=== PATIENT | male | born 1970 | race Caucasian/White ===

== ENCOUNTER 2018-06-13 19:44 | Inpatient (IN) | payer OTHER ==
[2018-06-13] MEDS ORDERED: LIDOCAINE 4%/MENTHOL 1% PATCH TD ONE (20:50)
[2018-06-13] MEDS ORDERED: HYDROmorphONE/DILAUDID 2 MG/ML INJ IVP ONE (21:16)
[2018-06-13] MEDS ORDERED: NS 1,000 ML IV ONE (21:16)
[2018-06-13] MEDS ORDERED: KETOROLAC 30 MG/1 ML SDV IVP ONE (21:18)
--- NOTE | 2018-06-13 22:37 | EDPHY ---
H & P Time Seen by Provider: 06/13/18 20:21 HPI/ROS: HPI Back pain. 47-year-old male, history of multiple back surgeries with extensive hardware placed through the lower thoracic and lumbar sacral spine. [place] He states that he kneeled down on 1 knee slightly awkwardly about an hour prior to arrival. [place] and felt a pop like sensation. Then sudden-onset mid lower back pain. Denies any bowel or bladder incontinence. No loss of sensation or weakness in his lower extremities. He is narcotic pain medication dependent. Please see his medication list for further details. ROS: Constitutional: No fever, no chills. No weakness. Eyes: No discharge. No changes in vision. ENT: No sore throat. No nasal congestion or rhinorrhea. Respiratory: No cough. No shortness of breath. Cardiac: No chest pain, no palpitations. Gastrointestinal: No abdominal pain, no vomiting, no diarrhea. Genitourinary: No hematuria. No dysuria or increased frequency with urination. Musculoskeletal: As above. No neck pain. No myalgias or arthralgias. Skin: No rashes. Neurological: No headache. No focal weakness or altered sensation. Past medical history: History of back surgeries x9, appendectomy, cholecystectomy. Most of his back surgeries were performed down at [place]. Social history: Currently here by himself. Nonsmoker. Denies alcohol. Physical Exam: General Appearance: Alert, he appears very uncomfortable.. This patient is responding to questions appropriately and in full sentences. This patient appears well-hydrated and well-nourished. Eyes: Pupils equal and round no pallor or injection. No lid edema, erythema or injection. Back exam: Significant for midline pain at L4-L5. No bony deformity or step- off noted on palpation. No soft tissue erythema, warmth, edema or ecchymosis noted. Any movement of his lower extremities induces pain. He is neurologically intact in all myotomes in dermatomes of the bilateral lower extremities. Respiratory: There are no retractions, lungs are clear to auscultation with good air movement bilaterally. Cardiovascular: Regular rate and rhythm. No murmur. Gastrointestinal: Abdomen is soft and nontender, no masses, bowel sounds normal. No focal tenderness at McBurney's point. No Tobin sign. Neurological: Motor sensory function is grossly intact. Cranial nerves are normal. Skin: Warm and dry, no rashes. Musculoskeletal: Neck is supple and nontender. Extremities are symmetrical. Psychiatric: No agitation. No depression. Database: EKG: Imaging: LS spine x-ray series: Extensive postsurgical changes upper lumbar spine. The spine does maintain its usual alignment. No evidence of acute fracture, subluxation or dislocation. Right sacroiliac screw appears fractured. Likely chronic. The right Feliz tawanda between T12 and L1 appears disjointed. Please see radiologist's report for further details. Procedures: Vital signs reviewed and are normal. IV was placed. Patient is in significant pain. He was initially given 1 mg of IV hydromorphone. He does not have any contraindications to NSAIDs. No history of renal dysfunction or gastric ulcers. He was also given 30 mg of IV Toradol. 10:35 p.m., patient re-evaluated laying still he appears comfortable and his pain is controlled. Repeat neurologic Assessment is nonfocal. However, any movement exacerbates his pain significantly. He will not be able to get himself out of the gurney and ambulate. 10:45 p.m., spoke with the on-call hospitalist Dr. Garcia. regarding this patient. He will see the patient in the emergency department. He accepts this patient for admission for pain control. The patient's remaining emergency department course under my care has been uneventful. He was admitted in stable condition to the hospitalist service. Differential Diagnosis: The differential diagnosis on this patient includes but is not limited to acute on chronic lower back, history of multiple LS spine surgeries with hardware placed. Acute fracture, subluxation unlikely. This represents a partial list of diagnoses considered. These considerations are based on history, physical exam, past history, reassessment and diagnostic testing. Smoking Status: Former smoker Constitutional: Initial Vital Signs O2 Sat (%) 95 06/13/18 20:00 O2 Delivery Mode Nasal Cannula O2 (L/minute) 1 Allergies/Adverse Reactions: No Known Allergies Allergy (Unverified 06/13/18 19:56) Home Medications: Medication Instructions Recorded Cyclobenzaprine [Cyclobenzaprine 06/13/18 HCl] Levomilnacipran HCl [Fetzima] 06/13/18 Morphine Sulfate [Morphine Sulfate 06/13/18 ER] Tramadol HCl 06/13/18 oxyCODONE IR [Oxycodone Ir (*)] 06/13/18 Medical Decision Making - Diagnostics Imaging Results: Imaging Impressions Lumbar Spine X-Ray 06/13/18 21:16 Impression: Extensive postsurgical changes of the lumbar spine. The spine maintains customary alignment. The right sacroiliac screw appears fractured, possibly chronic. In addition, the right Feliz tawanda between T12 and L1 is disjointed, which may be related to patient's staged surgeries. Correlation with any outside imaging suggested. - Data Points Laboratory Results: Laboratory Results 06/13/18 19:44 06/13/18 19:44 06/13/18 06/13/18 19:44 19:44 WBC 8.90 10^3/uL 10^3/uL (3.80-9.50) RBC 4.16 10^6/uL L 10^6/uL (4.40-6.38) Hgb 12.1 g/dL L g/dL (13.7-17.5) Hct 37.8 % L % (40.0-51.0) MCV 90.9 fL fL (81.5-99.8) MCH 29.1 pg pg (27.9-34.1) MCHC 32.0 g/dL L g/dL (32.4-36.7) RDW 13.9 % % (11.5-15.2) Plt Count 403 10^3/uL H 10^3/uL (150-400) MPV 10.3 fL fL (8.7-11.7) Neut % (Auto) 63.5 % % (39.3-74.2) Lymph % (Auto) 23.6 % % (15.0-45.0) [place] % (Auto) 8.1 % % (4.5-13.0) Eos % (Auto) 3.9 % % (0.6-7.6) Baso % (Auto) 0.7 % % (0.3-1.7) Nucleat RBC Rel Count 0.0 % % (0.0-0.2) Absolute Neuts (auto) 5.65 10^3/uL 10^3/uL (1.70-6.50) Absolute Lymphs (auto) 2.10 10^3/uL 10^3/uL (1.00-3.00) Absolute Monos (auto) 0.72 10^3/uL 10^3/uL (0.30-0.80) Absolute Eos (auto) 0.35 10^3/uL 10^3/uL (0.03-0.40) Absolute Basos (auto) 0.06 10^3/uL 10^3/uL (0.02-0.10) Absolute Nucleated RBC 0.00 10^3/uL 10^3/uL (0-0.01) Immature Gran % 0.2 % % (0.0-1.1) Immature Gran # 0.02 10^3/uL 10^3/uL (0.00-0.10) Sodium 140 mEq/L mEq/L (135-145) Potassium 4.6 mEq/L mEq/L (3.3-5.0) Chloride 102 mEq/L mEq/L (97-110) Carbon Dioxide 28 mEq/l mEq/l (22-31) Anion Gap 10 mEq/L mEq/L (8-16) BUN 15 mg/dL mg/dL (7-23) Creatinine 0.8 mg/dL mg/dL (0.7-1.3) Estimated GFR > 60 Glucose 93 mg/dL mg/dL (70-100) Calcium 9.1 mg/dL mg/dL (8.5-10.4) Medications Given: Discontinued Medications Hydromorphone HCl (Dilaudid) 1 mg IVP EDNOW ONE Stop: 06/13/18 21:17 Last Admin: 06/13/18 21:25 Dose: 1 mg Sodium Chloride (Ns) 1,000 mls @ 0 mls/hr IV ONCE ONE; Wide Open PRN Reason: Protocol Stop: 06/13/18 21:17 Last Admin: 06/13/18 21:27 Dose: 1,000 mls Ketorolac Tromethamine (Toradol) 30 mg IVP EDNOW ONE Stop: 06/13/18 21:19 Last Admin: 06/13/18 21:24 Dose: 30 mg Miscellaneous Medication (Icy Hot Lidocaine/Menthol 4%/1% Patch) 1 patch TD EDNOW ONE Stop: 06/13/18 20:51 Last Admin: 06/13/18 21:27 Dose: 1 patch Departure - Departure Disposition: [facility] Acute Clinical Impression: Back pain due to injury, History of back surgery
[2018-06-13 22:45] LABS: PLATELET COUNT 403 10^3/uL (150-400)
[2018-06-13] MEDS ORDERED: ONDANSETRON DISINTEGRATING 4 MG TAB PO PRN (22:46)
[2018-06-13] MEDS ORDERED: ONDANSETRON 4 MG/2 ML VIAL IVP PRN (22:46)
[2018-06-13] MEDS ORDERED: morphINE SR 15 MG TAB PO ONE (22:55)
--- NOTE | 2018-06-14 00:15 | PDGENHP ---
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 Immediately after he began to have severe back pain. He describes this as 10/10, stabbing, central pain at the level of his waist. He denies radiculopathy, leg weakness, or loss of tuyet/bladder control. At the time of my evaluation he is fairly comfortable while sitting still but has severe pain without any movement. XR in the ED revealed R sacroiliac screw that appears fractured, although this may be chronic according to the patient. There also appears to be a disjointed tawanda of unclear significance. Patient reports using Morphine SR 15 mg PRN for pain only. When he feels well he does not take any narcotics at all. He trialed Morphine SR 15 mg x1 and oxycodone 5 mg x1 prior to presentation with minimal relief. Case discussed with Dr. Watson, pervious records reviewed. History Information - Allergies/Home Medication List Allergies/Adverse Reactions: No Known Allergies Allergy (Unverified 06/13/18 19:56) Home Medications: Cyclobenzaprine [Cyclobenzaprine HCl] 06/13/18 [Last Taken Unknown] Levomilnacipran HCl [Fetzima] 06/13/18 [Last Taken Unknown] Morphine Sulfate [Morphine Sulfate ER] 06/13/18 [Last Taken Unknown] Tramadol HCl 06/13/18 [Last Taken Unknown] oxyCODONE IR [Oxycodone Ir (*)] 06/13/18 [Last Taken Unknown] I have personally reviewed and updated: family history, medical history - Past Medical History arthritis - Surgical History Reports: spinal surgery (x9) - Family History Additional family history: Arthritis - Social History Smoking Status: Former smoker Review of Systems Review of Systems: ROS: 10pt was reviewed & negative except for what was stated in HPI & below Physical Exam Physical Exam: Temp Pulse Resp BP Pulse Ox 36.9 C 85 18 117/73 95 06/13/18 20:01 06/13/18 23:24 06/13/18 23:24 06/13/18 23:24 06/13/18 23:24 Constitutional: appears nourished, uncomfortable Eyes: PERRL, EOMI Ears, Nose, Mouth, Throat: moist mucous membranes, no oral mucosal ulcers Cardiovascular: regular rate and rhythym, no murmur, rub, or gallop Respiratory: no respiratory distress, clear to auscultation Gastrointestinal: normoactive bowel sounds, soft, non-tender abdomen Skin: warm, normal color Musculoskeletal: full muscle strength, no joint effusions Neurologic: AAOx3, sensation intact bilaterally, CN II-XII Intact, No weakness Psychiatric: interacting appropriately, not anxious Lab Data & Imaging Review 06/13/18 19:44 06/13/18 19:44 WBC 8.90 10^3/uL (3.80-9.50) 06/13/18 19:44 RBC 4.16 10^6/uL (4.40-6.38) L 06/13/18 19:44 Hgb 12.1 g/dL (13.7-17.5) L 06/13/18 19:44 Hct 37.8 % (40.0-51.0) L 06/13/18 19:44 MCV 90.9 fL (81.5-99.8) 06/13/18 19:44 MCH 29.1 pg (27.9-34.1) 06/13/18 19:44 MCHC 32.0 g/dL (32.4-36.7) L 06/13/18 19:44 RDW 13.9 % (11.5-15.2) 06/13/18 19:44 Plt Count 403 10^3/uL (150-400) H 06/13/18 19:44 MPV 10.3 fL (8.7-11.7) 06/13/18 19:44 Neut % (Auto) 63.5 % (39.3-74.2) 06/13/18 19:44 Lymph % (Auto) 23.6 % (15.0-45.0) 06/13/18 19:44 [place] % (Auto) 8.1 % (4.5-13.0) 06/13/18 19:44 Eos % (Auto) 3.9 % (0.6-7.6) 06/13/18 19:44 Baso % (Auto) 0.7 % (0.3-1.7) 06/13/18 19:44 Nucleat RBC Rel Count 0.0 % (0.0-0.2) 06/13/18 19:44 Absolute Neuts (auto) 5.65 10^3/uL (1.70-6.50) 06/13/18 19:44 Absolute Lymphs (auto) 2.10 10^3/uL (1.00-3.00) 06/13/18 19:44 Absolute Monos (auto) 0.72 10^3/uL (0.30-0.80) 06/13/18 19:44 Absolute Eos (auto) 0.35 10^3/uL (0.03-0.40) 06/13/18 19:44 Absolute Basos (auto) 0.06 10^3/uL (0.02-0.10) 06/13/18 19:44 Absolute Nucleated RBC 0.00 10^3/uL (0-0.01) 06/13/18 19:44 Immature Gran % 0.2 % (0.0-1.1) 06/13/18 19:44 Immature Gran # 0.02 10^3/uL (0.00-0.10) 06/13/18 19:44 Sodium 140 mEq/L (135-145) 06/13/18 19:44 Potassium 4.6 mEq/L (3.3-5.0) 06/13/18 19:44 Chloride 102 mEq/L (97-110) 06/13/18 19:44 Carbon Dioxide 28 mEq/l (22-31) 06/13/18 19:44 Anion Gap 10 mEq/L (8-16) 06/13/18 19:44 BUN 15 mg/dL (7-23) 06/13/18 19:44 Creatinine 0.8 mg/dL (0.7-1.3) 06/13/18 19:44 Estimated GFR > 60 06/13/18 19:44 Glucose 93 mg/dL (70-100) 06/13/18 19:44 Calcium 9.1 mg/dL (8.5-10.4) 06/13/18 19:44 Imaging Review: Imaging Impressions Lumbar Spine X-Ray 06/13/18 21:16 Impression: Extensive postsurgical changes of the lumbar spine. The spine maintains customary alignment. The right sacroiliac screw appears fractured, possibly chronic. In addition, the right Feliz tawanda between T12 and L1 is disjointed, which may be related to patient's staged surgeries. Correlation with any outside imaging suggested. Assessment & Plan Assessment: 47 yo M w/ hx of severe spinal DJD with 9 previous surgeries presents with back pain. Plan: 1. Back pain - Patient heard a pop after kneeling down; this is in the setting of 9 previous spinal surgeries. Patient is currently neurologically intact but in severe pain and unable to ambulate as a result. XR reveals fractured screw and disjointed tawanda, but patient thinks these may be chronic findings. - Admit for pain control - Obtain previous imaging from [facility] to compare XR findings ([facility] currently unavailable) to determine wether surgical involvement is necessary - Will schedule Morphine SR 15 mg BID + morphine 2-4 mg IV PRN for now - PT/OT evaluations 2. Spinal DJD - s/p 9 previous surgeries. His most recent surgery was at [facility] [address] Burns. - Acute pain control as above Diet - Regular Code - Full Ppx - SCDs Dispo - Admit under observation status
[2018-06-14] MEDS: PATCH REMOVAL 1 EA PATCH TD SCH ×2 (01:05→22:54)
[2018-06-14] MEDS ORDERED: Herbals/Supplements -Info Only PO SCH (09:00)
[2018-06-14] MEDS: ASCORBIC ACID 500 MG TAB PO SCH (10:02)
[2018-06-14] MEDS: morphINE SR 15 MG TAB PO SCH ×2 (10:02→21:21)
[2018-06-14] MEDS: CALCIUM CARBONATE 500 MG TAB PO SCH (10:02)
[2018-06-14] MEDS: CHOLECALCIFEROL VIT D3 1,000 UNITS TAB PO SCH (10:03)
[2018-06-14] MEDS: CYCLOBENZAPRINE 10 MG TAB PO PRN ×2 (10:09→16:23)
[2018-06-14] MEDS: LEVOMILNACIPRAN HCL 120 MG PO SCH (10:24)
[2018-06-14] MEDS: oxyCODONE IR 5 MG TAB PO PRN ×2 (10:55→21:21)
[2018-06-14] MEDS: morphINE SR 15 MG TAB PO PRN (11:15)
[2018-06-14] MEDS ORDERED: BISACODYL 10 MG SUPP PR PRN (11:19)
[2018-06-14] MEDS ORDERED: LACTULOSE 20 GM/30 ML UDCUP PO PRN (11:19)
[2018-06-14] MEDS ORDERED: MAGNESIUM HYDROXIDE 30 ML UDCUP PO PRN (11:19)
[2018-06-14] MEDS ORDERED: POLYETHYLENE GLYCOL 3350 17 GM PKT PO PRN (11:19)
[2018-06-14] MEDS: LORazepam 2 MG/ML INJ IVP PRN ×2 (12:23→21:21)
--- NOTE | 2018-06-14 13:19 | GCON ---
[f rep st] CONSULTATION NEUROSURGERY CONSULTATION CHIEF COMPLAINT: Excruciating lower back pain. HISTORY OF PRESENT ILLNESS: The patient is a 47-year-old male patient who has undergone extensive lumbar spine surgeries. He reports that in the past he had a multilevel fusion with Dr. Recinos. Since then, he developed further degeneration , was referred to Dr. Burns at the [facility]. Dr. Burns recently performed a fusion extending his hardware up to the T2 level. The patient reports that yesterday he was kneeling down to try and package pick up an Oreo when he felt a terrible pop in his back. He had severe back pain. EMS was called and transported the patient to the emergency room. The patient has undergone x-rays , which demonstrated a fractured S2 screw and also another questionable fracture versus break in his hardware. The neurosurgery service was subsequently consulted given the patient's persistent pain and history of multilevel spine surgery. His most recent spine surgery was about [address] Burns, and prior to this, the patient had been doing well and had been weaning down off his pain medications. He was down to 1 morphine extended release pain pill per day when needed. Currently, the patient states he has excruciating lower back pain with movement. If he lays still in bed, he does okay, but any rotation or significant movement of his legs brings on the pain. On examination today, the patient denies any numbness, tingling, weakness in his arms or legs, any bladder or bowel incontinence, or any other complaints. REVIEW OF SYSTEMS: Please see above mentioned in the HPI. ALLERGIES: Patient has no known drug allergies. HOME MEDICATIONS: Include Flexeril, Fetzima, MS-Contin, tramadol, and oxycodone. PAST SURGICAL HISTORY: Positive for multiple spine surgeries. FAMILY HISTORY: Significant for arthritis. SOCIAL HISTORY: The patient is a former smoker. PHYSICAL EXAMINATION: VITAL SIGNS: Blood pressure is 111/73. Heart rate is 89. O2 saturation is 100% on 1 L of oxygen via nasal cannula. Respirations 18. Temperature is 36.6. GENERAL: This is a well-developed, well-nourished male patient in no acute distress. NEURO: His cranial nerves 2-12 are grossly intact. The patient is normocephalic and atraumatic. Motor examination of bilateral upper extremities is 5/5 for deltoid, triceps, biceps, and hand slag expander bilaterally. Motor examination of the bilateral lower extremities is 5/5 for hip flexion, flexion and extension at the knee and plantar and dorsiflexion. He reports intact sensation throughout the normal dermatomal distribution of his body. When I assessed hip flexion, he does complain of persistent pain in his low back. Had the patient rotate to the side, and this brought on excruciating pain in his lower back. I visualized his incision from his upper thoracic spine down to his lumbar spine that appears well healed in the midline position. IMAGING: Lumbar spine x-ray: Extensive postsurgical changes of the lumbar spine. The spine maintains customary alignment. The right sacroiliac screw appears fracture, possibly chronic. In addition, the right Feliz tawanda between T12 and L1 is disjointed, which may be related to the patient's staged surgery with correlation with any outside imaging suggested. LABORATORY DATA: White blood cells 8.0, red blood cells 4.16, hemoglobin 12.1, hematocrit 37.8. RDW is 13.9. Platelet count is 403. Sodium was 140, potassium 4.6, chloride 102, carbon dioxide 28, anion gap 10, BUN 15, creatinine 0.8, GFR greater than 60, glucose 93, calcium 9.1. ASSESSMENT: This is a 47-year-old male patient, status post extension of his fusion to the T2 level approximately 1 month ago, admitted with intractable lower back pain. PLAN: Dr. Ellison and I have seen the patient together this afternoon. The patient is neurologically intact. However, he has significant low back pain and may have a new issue with his hardware. We do not have any outside radiographs to compare to. We would like to obtain more detailed imaging. Given the patient's multiple stimulators, is not able to have an MRI. We have ordered a CT myelogram of the thoracic and lumbar spine for further evaluation. We will determine further treatment plans once the imaging has come back. However, in the meantime, would continue to work on pain management for this patient. Please contact the Neurosurgery service if any additional questions or concerns. /[id number]/MODL MTDD
--- NOTE | 2018-06-14 14:12 | HOSPPROG ---
Hospitalist Progress Note Assessment/Plan: 47 yo M w/ hx of severe spinal DJD with 9 previous surgeries presents with back pain. First encounter, chart reviewed. D/W neurosurgery. Plan: 1. Back pain - Patient heard a pop after kneeling down -this is in the setting of 9 previous spinal surgeries -Patient is currently neurologically intact but in severe pain and unable to ambulate -XR reveals fractured screw and disjointed tawanda, but patient thinks these may be chronic findings -neurosurgery consult requested -pain control -Obtain previous imaging from [facility] to compare XR findings to determine wether surgical involvement is necessary -schedule Morphine SR 15 mg BID + morphine 2-4 mg IV PRN for now -IV ativan -po flexeril -PT/OT evaluations 2. Spinal DJD - s/p 9 previous surgeries - His most recent surgery was at [facility] [address] Burns. - Acute pain control as above Diet - Regular Code - Full Ppx - SCDs Dispo change to inpt status pt will need further IV meds for pain control neurosurgery eval and workup Subjective: Still having severe pain. Spasm feeling. No other issues. Objective: Vital Signs Temp Pulse Resp BP Pulse Ox 36.6 C 89 18 111/73 100 06/14/18 11:35 06/14/18 11:35 06/14/18 11:35 06/14/18 11:35 06/14/18 11:35 06/13/18 06/14/18 06/15/18 05:59 05:59 05:59 Intake Total 1600 400 Output Total 975 1300 Balance 625 -900 - Physical Exam Constitutional: appears nourished, uncomfortable, No obese Eyes: PERRL, anicteric sclera, EOMI Ears, Nose, Mouth, Throat: moist mucous membranes, hearing normal, ears appear normal Cardiovascular: No JVD, No tachycardia, No edema Respiratory: no respiratory distress, no rales or rhonchi, reduced air movement Gastrointestinal: No tenderness, No ascites, No guarding Skin: warm, normal color, No mottled Musculoskeletal: no joint effusions, pain with ROM, muscular tenderness, generalized weakness Neurologic: AAOx3 Psychiatric: interacting appropriately, not encephalopathic, thought process linear, anxious ICD10 Worksheet Patient Problems: Problems Problem Status Onset Back pain due to injury Acute History of back surgery Acute
--- NOTE | 2018-06-14 15:16 | ASMTCMCOM ---
CM Note CM Note Notes: Pt in for back pain/pain control. Hisoty of 9 back surgeries, last 4 weeks ago at [facility]. Neurosurgery consulting for treatment. OT/PT evals pending. CM to follow for d/c planning. Date Signed: 06/14/2018 03:15 PM Electronically Signed By:WALTER Qureshi
--- NOTE | 2018-06-14 15:51 | PDMN ---
Medical Necessity Medical necessity: Pt meets inpt criteria per MD order and MCG M-63, Back pain, A-1 days, est LOS>2MN for ongoing eval and management of severe back pain, unable to ambulate, Neurosurg consult; will have CT myelogram of thoracic and lumbar spine, IV morphine for pain in addition to oral pain meds (MS Contin and Oxy IR), hx of severe spinal DJD and 9 previous spinal surgeries, last one 4 wks ago at [facility]. Await imaging results to determine further treatment, management of severe pain,PT/OT evals when able.
[2018-06-14] MEDS: SENNOSIDES/DOCUSATE SODIUM TAB PO SCH (21:21)
[2018-06-15] MEDS: oxyCODONE IR 5 MG TAB PO PRN ×2 (06:18→15:22)
[2018-06-15] MEDS: SENNOSIDES/DOCUSATE SODIUM TAB PO SCH ×2 (09:06→21:16)
[2018-06-15] MEDS: CALCIUM CARBONATE 500 MG TAB PO SCH (09:07)
[2018-06-15] MEDS: ASCORBIC ACID 500 MG TAB PO SCH (09:08)
[2018-06-15] MEDS: CHOLECALCIFEROL VIT D3 1,000 UNITS TAB PO SCH (09:08)
[2018-06-15] MEDS: morphINE SR 15 MG TAB PO SCH ×2 (09:09→21:17)
[2018-06-15] MEDS: LEVOMILNACIPRAN HCL 120 MG PO SCH (09:10)
[2018-06-15] MEDS: LORazepam 2 MG/ML INJ IVP PRN ×2 (09:27→19:46)
[2018-06-15] MEDS: ACETAMINOPHEN 325 MG TAB PO PRN (09:28)
[2018-06-15] MEDS: traMADol 50 MG TAB PO PRN (09:29)
--- NOTE | 2018-06-15 10:17 | NEUSURGPN ---
Assessment/Plan: 47y/o male with low back pain s/p fusion extension tie into T2 done by Dr. Burns at the [place] [facility]. His films have been reviewed by Dr. Mitchell. Dr. Mitchell has also reached out to Dr. Burns to up date him on this patient. his jessica do not demonstrates need for acute neurosurgical intervention at this time. Recommend the patient's pain management is optimized with oral medications. He should follow up with Dr. Burns after discharge Discussed with Dr. Mitchell Will s/o off at this time, please notify NS with any change in neuro/motor exam Subjective: low back pain. Denies any new weakness. Objective: NAD A&Ox3 MAEx4 5/5 and equal in BUE and BLE. Sensation intact. - Physician Discussed Patient with Dr.: Mitchell Neurosurgery Physical Exam - Vitals, I&O, Labs I and O 06/14/18 06/15/18 06/16/18 05:59 05:59 05:59 Intake Total 1150 Output Total 2925 Balance -1775 Intake: Oral (ml) 1150 Output: Urine (ml) 2925 Urinal 2925 Other: Intake Quantity Yes Sufficient Number of Voids Urinal 1 Vital Signs Temp Pulse Resp BP Pulse Ox 36.7 C 96 16 118/70 99 06/15/18 07:45 06/15/18 07:45 06/15/18 07:45 06/15/18 07:45 06/15/18 07:45 ICD10 Worksheet Patient Problems: Problems Problem Status Onset Back pain due to injury Acute History of back surgery Acute
--- NOTE | 2018-06-15 13:19 | HOSPPROG ---
Hospitalist Progress Note Assessment/Plan: 47 yo M w/ hx of severe spinal DJD with 9 previous surgeries presents with back pain. D/W neurosurgery. Plan: 1. Back pain - Patient heard a pop after kneeling down -this is in the setting of 9 previous spinal surgeries -Patient is currently neurologically intact but in severe pain and unable to ambulate -XR reveals fractured screw and disjointed tawanda, but patient thinks these may be chronic findings -neurosurgery consulted -no intervention at this time -pain control -schedule Morphine SR 15 mg BID + morphine 2-4 mg IV PRN for now -IV ativan -po flexeril -PT/OT 2. Spinal DJD - s/p 9 previous surgeries - His most recent surgery was at [facility] [address] Burns. - Acute pain control as above Diet - Regular Code - Full Ppx - SCDs Dispo change to inpt status pt will need further IV meds for pain control Subjective: Still having pain when moving. Pain less in bed. Frustrated. Objective: Vital Signs Temp Pulse Resp BP Pulse Ox 36.6 C 110 H 18 112/72 98 06/15/18 11:26 06/15/18 11:26 06/15/18 11:26 06/15/18 11:26 06/15/18 11:26 06/14/18 06/15/18 06/16/18 05:59 05:59 05:59 Intake Total 1150 500 Output Total 2925 500 Balance -1775 0 - Physical Exam Constitutional: appears nourished, uncomfortable Eyes: PERRL, anicteric sclera Ears, Nose, Mouth, Throat: moist mucous membranes, hearing normal Cardiovascular: No JVD, No edema Respiratory: no respiratory distress, no rales or rhonchi Gastrointestinal: No tenderness, No ascites Skin: warm, normal color Musculoskeletal: pain with ROM, muscular tenderness, generalized weakness Neurologic: AAOx3 Psychiatric: not encephalopathic, thought process linear, poor insight ICD10 Worksheet Patient Problems: Problems Problem Status Onset Back pain due to injury Acute History of back surgery Acute
[2018-06-15] MEDS: CYCLOBENZAPRINE 10 MG TAB PO PRN (15:23)
[2018-06-15] MEDS: morphINE SR 15 MG TAB PO PRN (16:46)
[2018-06-15] MEDS: PATCH REMOVAL 1 EA PATCH TD SCH (21:22)
[2018-06-16] MEDS: traMADol 50 MG TAB PO PRN ×2 (02:00→13:07)
[2018-06-16] MEDS: CYCLOBENZAPRINE 10 MG TAB PO PRN ×2 (02:01→08:14)
[2018-06-16] MEDS: oxyCODONE IR 5 MG TAB PO PRN (04:21)
--- NOTE | 2018-06-16 06:55 | NEUSURGPN ---
Assessment/Plan: 47y/o male with low back pain s/p fusion extension tie into T2 done by Dr. Burns at the [facility]. His films have been reviewed by Dr. Mitchell. Dr. Mitchell has also reached out to Dr. Burns to up date him on this patient. his films do not demonstrates need for acute neurosurgical intervention at this time. I discussed this again with the patient this morning. Recommend the patient's pain management is optimized with oral medications. He should follow up with Dr. Burns after discharge Discussed with Dr. Mitchell Will follow while in house, please notify NS with any change in neuro/motor exam Subjective: low back pain. Objective: NAD A&Ox3 MAEx4 5/5 and equal in BUE and BLE. Sensation intact. - Physician Discussed Patient with Dr.: Mitchell Neurosurgery Physical Exam - Vitals, I&O, Labs I and O 06/15/18 06/16/18 06/17/18 05:59 05:59 05:59 Intake Total 1150 1350 Output Total 2925 1200 Balance -1775 150 Intake: Oral (ml) 1150 1350 Output: Urine (ml) 2925 1200 Urinal 2925 1200 Other: Intake Quantity Yes Yes Sufficient Number of Voids Urinal 1 1 Vital Signs Temp Pulse Resp BP Pulse Ox 36.4 C 89 16 112/71 97 06/16/18 04:00 06/16/18 04:00 06/16/18 04:00 06/16/18 04:00 06/16/18 04:00 ICD10 Worksheet Patient Problems: Problems Problem Status Onset Back pain due to injury Acute History of back surgery Acute
[2018-06-16] MEDS: morphINE SR 15 MG TAB PO SCH (08:05)
[2018-06-16] MEDS: ACETAMINOPHEN 325 MG TAB PO PRN (08:05)
[2018-06-16] MEDS: CHOLECALCIFEROL VIT D3 1,000 UNITS TAB PO SCH (08:06)
[2018-06-16] MEDS: CALCIUM CARBONATE 500 MG TAB PO SCH (08:06)
[2018-06-16] MEDS: ASCORBIC ACID 500 MG TAB PO SCH (08:06)
[2018-06-16] MEDS: SENNOSIDES/DOCUSATE SODIUM TAB PO SCH (08:06)
[2018-06-16] MEDS: LEVOMILNACIPRAN HCL 120 MG PO SCH (08:07)
[2018-06-16] MEDS ORDERED: CYCLOBENZAPRINE 10 MG TAB PO PRN (09:00)
[2018-06-16] MEDS ORDERED: oxyCODONE IR 5 MG TAB PO PRN (09:00)
[2018-06-16] MEDS ORDERED: morphINE SR 15 MG TAB PO ONE (09:00)
[2018-06-16 11:45] VITALS: BP 120/78
--- NOTE | 2018-06-16 12:58 | ASMTLACE ---
[facility] Length of stay for Answers: 1 day current admission Comorbidities - select Answers: Other Notes: Severe spinal DJD all that apply # of Emergency department Answers: 1-2 visits in the last 6 months Score: 3 Date Signed: 06/16/2018 12:57 PM Electronically Signed By:Radha Morgan RN
--- NOTE | 2018-06-16 13:02 | ASMTCMCOM ---
CM Note CM Note Notes: Patient to transfer to the [facility] per hospital medicine. Emtala form filled out per MD and RN. Transport via [facility] arranged for 2 pm pickup. RN to call report. Paperwork via staff to accompany patient. CM available should other needs arise. Plan: Transfer to [place] via [facility]. Date Signed: 06/16/2018 01:02 PM Electronically Signed By:Radha Morgan RN
[2018-06-16] MEDS ORDERED: morphINE SR 30 MG TAB PO SCH (21:00)
--- NOTE | 2018-06-16 21:31 | GDS ---
[f rep st] DISCHARGE SUMMARY DISCHARGE DIAGNOSES: 1. Back pain. 2. Spine degenerative joint disease. PHYSICAL EXAM: GENERAL: The patient is alert. VITAL SIGNS: Afebrile at 37. Pulse is 103, respira tory rate 14. Blood pressure is 120/70, saturating 95% on 1 L. I have seen and evaluated the patient on the day of discharge. HOSPITAL COURSE: The patient is a 47-year-old male who presented to the emergency room via ambulance after suffering a popping and an excruciating sudden onset of back pain. During this hospitalizatio n, he received a consultation from Neurosurgery. Thoracic and lumbar spine CT as well as lumbar spin e x-ray were performed in the setting of hardware and spinal stimulators limiting evaluation to CT sc ans. Neurosurgery assisted in managing the patient's pain. However, the patient requested to be tra nsferred to the [facility] where his primary neurosurgeon, Dr. Burns, was located. The patient's pain continued to be intense and he will be transferred under the care of Dr. Montano to be followed by Dr. Burns at the [facility]. There are no pending studies. TIME SPENT WITH PATIENT: I have spent greater than 35 minutes in the care, coordination, and managem ent of this patient's disposition and transfer. DISCHARGE MEDICATIONS: Please refer to EMR form. /[id number]/MODL
== END 2018-06-16 13:28 | disposition short-term general hospital (02) | DRG 552 ==
LOC: F3N 06-14 00:08 → OBSVTOIN 06-14 14:14
PROVIDERS: ADMIT Student in an Organized Health Care Education/Training Program; ATTEND Student in an Organized Health Care Education/Training Program
DX: M54.9 Dorsalgia, unspecified (principal); G31.89 Other specified degenerative diseases of nervous system; Z98.1 Arthrodesis status
CPT/HCPCS: 96374; 97163-GP; 97166-GO; G0378; J1170; J1885; J2060; J2270